=== PATIENT | male | born 1970 | race Caucasian/White ===

== ENCOUNTER 2022-02-01 20:20 | Emergency (ER) | payer OTHER ==
[~2022-02-01] VITALS: Ht 182.9 cm; Wt 90.7 kg
[~2022-02-01 20:20] MED LIST: ACYC200 PO; BUPR150ER PO; BUSP10 PO; GABA800 PO; OMEPRAZOLE MAGN20 MG PO; OXYC30ER PO
== END 2022-02-01 22:27 | disposition home or self-care (01) ==
LOC: ER 20:20
DX: S06.0X9A Concussion with loss of consciousness of unspecified duration, initial encounter (principal); S00.83XA Contusion of other part of head, initial encounter; R04.0 Epistaxis; F10.129 Alcohol abuse with intoxication, unspecified; F17.220 Nicotine dependence, chewing tobacco, uncomplicated; Z23 Encounter for immunization; Z79.899 Other long term (current) drug therapy
CPT/HCPCS: 12001; 70450; 72125; 90471; 90714; 99284-25; A9270

== ENCOUNTER 2024-06-03 21:27 | Emergency (ER) | payer OTHER | END 2024-06-03 21:43 | disposition home or self-care (01) | LOC: ER 21:27 | DX: S01.312A Laceration without foreign body of left ear, initial encounter (principal); F17.220 Nicotine dependence, chewing tobacco, uncomplicated; X58.XXXA Exposure to other specified factors, initial encounter; Z79.899 Other long term (current) drug therapy | CPT/HCPCS: 12013; 99282-25 ==